=== PATIENT | male | born 1990 | race Caucasian/White ===

== ENCOUNTER 2023-06-08 22:35 | Emergency (ER) | payer OTHER ==
[~2023-06-08] VITALS: Ht 180.3 cm; Wt 100.6 kg
[2023-06-08] MEDS ORDERED: IBUP200C89 PO (22:43)
[2023-06-09 02:27] VITALS: BP 158/86; TEMP 97; O2SAT 97
[2023-06-09] MEDS ORDERED: AMOX875T2 PO (06:12)
[2023-06-09] MEDS: AUGMENTIN 875 MG TAB PO ONE (06:28)
== END 2023-06-09 06:37 | disposition home or self-care (01) ==
LOC: M ED 22:35
DX: K08.89 Other specified disorders of teeth and supporting structures (principal); K02.9 Dental caries, unspecified; Z79.1 Long term (current) use of non-steroidal anti-inflammatories (NSAID); Z79.2 Long term (current) use of antibiotics